=== PATIENT | female | born 1985 | race Caucasian/White ===

== ENCOUNTER 2017-01-26 10:10 | Observation (INO) ==
[2017-01-26] MEDS ORDERED: ASPIRIN 325 MG TABLET PO STA (10:43)
[2017-01-26] MEDS ORDERED: ENOXAPARIN 100 MG/ML SYRINGE SUBCUT STA (10:43)
[2017-01-26] MEDS ORDERED: ENOXAPARIN 80 MG/0.8 ML SYRINGE SUBCUT ONE (10:58)
[2017-01-26] MEDS ORDERED: ASPIRIN 325 MG TABLET ONE (10:58)
[2017-01-26 11:11] LABS: PT Patient Result 10.1 SECS; Partial Thromboplastin Time 30.8 SECS (0-40)
[2017-01-26 11:18] LABS: Apearance,Urine Slightly Hazy (Clear); Bacteria,Urine Occasional /HPF (Few); Bilirubin,Urine Negative (Negative); Blood, Urine Negative (Negative); Glucose,Urine (UA) Negative (Negative); Ketones,Urine Negative (Negative); Mucus,Urine Occasional /LPF (Occasional); Nitrite,Urine Negative (Negative); Protein,Urine Negative; RBC,Urine 2 /HPF (0-4); Squamous Epithelial Cell,Urine Occasional /HPF (0-10); Urine Color Yellow (Yellow); Urine Specific Gravity 1.014 (1.001-1.035); Urine Urobilinogen < 2.0 EU/DL (0.2-1.0); WBC,Urine 1 /HPF (0-6)
--- NOTE | 2017-01-26 11:18 | Emergency Department Note ---
Raffaele Anaya Brittany, am scribing for, and in the presence of, Perry Chowdary MD 10: 46. Ricarda Anaya James D, MD, personally performed the services described in this documentation, ascribed by Greer Castorena in my presence, and it is both accurate and complete . Arrival - Arrival Chief Complaint: Chest Pain Stated Complaint: pain in left arm and chest ED Nursing Triage Note: pain in center of chest that radiates down her right arm that started last night. reports some sob that is worse when she lays down. denies being sick with cough or cold. Mode of Arrival: Ambulatory Limitations: No Limitations Source: Patient - History of Present Illness HPI Narrative: This is a 31 y/o white female, who presents to the ED with c/o CP which started last night. She localizes the pain to the right side of the chest and describes the pain as an aching/dull type of pain. She reports she was sleeping when the pain started. She states the pain goes to her neck and down the left arm and then into the upper part of her left shoulder/back area. She reports diaphoresis with the chest pain. Pt has no other complaints/pain in the ED at this time. PT has a PMHx of asthma. Pt has had a cholecystectomy and spinal surgery. Pt is a current every day smoker, she reports she smokes 1/4 PPD, but denies the use of alcohol and street drugs. Onset (ago): hour(s) (Started last night) Consistency: constant Severity: moderate Quality: aching, dull Date of Last Menstrual Period: today Allergies/Adverse Reactions: Allergies Allergy/AdvReac Type Severity Reaction Status Date / Time sulfamethoxazole Allergy RASH Verified 03/22/15 20:58 [From Bactrim] trimethoprim [From Bactrim] Allergy RASH Verified 03/22/15 20:58 tramadol AdvReac Migraine Verified 03/22/15 20:58 Home Medications: Home Medications Medication Instructions Recorded Confirmed Type clonazePAM [Clonazepam] 1 mg PO QOTHER DAY PRN 01/26/17 01/26/17 History Review of System - Review of System 12 point system: reviewed and no additional remarkable complaints except as stated - Review of System Constitutional: Present: diaphoresis Cardiovascular: Present: chest pain, orthopnea Medical,Surgical,& Family Hx - Medical History Cardio: No history of: Hypertension Endocrine: No history of: Diabetes Mellitus (IDDM), Diabetes Mellitus (NIDDM) Respiratory: History of: Asthma No history of: Pneumonia Renal: No history of: Renal Failure, Renal Problems Gastrointestinal: History of: GI Problems (remote hx of PUD) No history of: Gastrointestinal Bleed, Liver Problems Musculoskeletal: History of: Back/Neck Problems - Surgical History Abdominal Surgeries: Surgical HX of: Cholecystectomy Orthopedic Surgeries: Surgical HX of;: Spinal Surgery (L5-S1 fusion) - Social History Smoking Status: Current every day smoker Exam Vital Signs: Vital Signs Temperature 98.1 F 01/26/17 10:41 Pulse Rate 62 01/26/17 11:16 Respiratory Rate 17 01/26/17 11:16 Blood Pressure 110/74 01/26/17 11:16 O2 Sat by Pulse Oximetry 100 01/26/17 11:16 GENERAL: This is a well-nourished well-developed white female in no apparent distress. VITAL SIGNS: Reviewed HEENT: Head is atraumatic and normocephalic. Pupils are equal round react to light. Extraocular movements are intact. Oropharynx is benign with moist mucous membranes. NECK: Neck is soft and supple without tenderness. There are no masses. There is no lymphadenopathy. LUNGS: Lungs are clear to auscultation. Chest rises symmetrically. There is no chest wall tenderness. CV: Heart is regular rate and rhythm without murmurs rubs or gallops. ABDOMEN: Abdomen is soft, nontender to palpation. There are no abdominal abnormal masses palpated. There is no organomegaly. Bowel sounds are present and active. SKIN: Skin is warm and dry. No rash. EXTREMITIES: Patient has full range of motion without tenderness. There is no pedal edema. NEUROLOGIC: Awake alert and oriented 4. Cranial nerves II through XII are grossly intact. Motor is 5 over 5 in all extremities bilaterally. Course - Consultations Consultation #1: Discussed with hospitalist. Patient will be admitted to their service. Time: 12:39 Results - Labs CBC & BMP: 01/26/17 10:53 01/26/17 10:53 Lab Results: I have reviewed the patients labs Labs: Laboratory Tests 01/26/17 10:53 Troponin I < 0.015 Laboratory Tests 01/26/17 10:53 Urine Opiates Screen Positive H Ur Barbiturates Screen Negative Ur Phencyclidine Scrn Negative U Amphetamine/Methamph Negative U Benzodiazepines Scrn Positive H U Cocaine Metab Screen Negative U Cannabinoids Screen Positive H - EKG EKG results: interpreted by ERMD - Impressions EKG: Normal sinus rhythm with a rate of 66, normal ST-T waves, normal axis. - Diagnostic Findings Procedure: Chest x-ray: image reviewed by me (No infiltrates, no pleural effusions, no cardiomegaly) Disposition Clinical Impression: Chest pain, Nicotine addiction, Polysubstance abuse Case discussed with: patient Disposition: Still a Patient Condition: Stable Time of Disposition: 12:31
[2017-01-26 11:24] LABS: Barbiturates Screen,Urine Negative (Negative); Benzodiazepines Screen,Urine Positive (Negative); Cannabinoid Screen,Urine Positive (Negative); Opiate Screen,Urine Positive (Negative); Phencyclidine Screen,Urine Negative (Negative)
[2017-01-26 11:35] LABS: Albumin 3.9 G/DL (3.4-5.0); Bilirubin,Total 1.6 MG/DL (0.2-1.0); Calcium 8.8 MG/DL (8.5-10.1); Osmolality,Calculated 282.8 MOS/KG (273-304); Potassium 3.8 MMOL/L (3.5-5.1); Total Protein 6.8 G/DL (6.4-8.3)
[2017-01-26 11:37] LABS: Basophils % 0.5 % (0.0-0.8); Eosinophils # 0.3 10*3/uL (0.0-0.87); Eosinophils % 4.6 % (0.00-10.9); Hematocrit 43.3 VOL% (35.7-47.0); Hemoglobin 14.7 GM/DL (12.0-16.0); Immature Granulocytes % 0.2 %; Immature Granulocytes Absolute 0.01 #; Lymphocytes # 2.1 10*3/uL (1.4-4.0); Lymphocytes % 35.4 % (21.3-54.2); Mean Corpuscular HGB Conc 33.9 GM/DL (32-36); Mean Corpuscular Hemoglobin 31 PG (27-34); Mean Corpuscular Volume 91.2 FL (87-102); Mean Platelet Volume 11.6 FL (9.6-12.0); Monocytes # 0.3 10*3/uL (0.11-0.8); Monocytes % 4.8 % (1.7-12.7); Neutrophils # 3.2 10*3/uL (1.4-7.4); Neutrophils % 54.5 % (38.7-73.9); Platelet Count 237 T/CUMM (130-400); Red Blood Count 4.75 MC/CUMM (3.8-5.5); Red Cell Distribution Width 11.8 % (9.3-17.3); White Blood Count 5.8 T/CUMM (4-12)
--- NOTE | 2017-01-26 11:39 | XRay Report ---
XR chest 2V Indication: Chest pain. Chest 2 views: Comparisons 08/17/2014. The heart size and mediastinal contour are normal. The lungs and pleural spaces are clear. Bones are unremarkable. Impression: Negative chest. PROCEDURE INTERPRETED AT [facility] [place] DEPARTMENT OF RADIOLOGY Final Report Signed by: Shiva Gaona M.D.
--- NOTE | 2017-01-26 13:19 | EKG Report ---
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
[2017-01-26] MEDS ORDERED: DOCUSATE SODIUM 100 MG CAPSULE PO PRN (14:35)
[2017-01-26] MEDS ORDERED: ACETAMINOPHEN 325 MG TABLET PO PRN (14:35)
[2017-01-26] MEDS ORDERED: BISACODYL 5 MG TABLET PO PRN (14:35)
[2017-01-26] MEDS ORDERED: ONDANSETRON 4 MG/2 ML VIAL IV PRN (14:35)
--- NOTE | 2017-01-26 14:40 | Hospitalist History & Physical ---
<Mel Melendrez - Last Filed: 01/26/17 15:30> Assessment and Plan (1) Chest pain Status: Acute Assessment and plan: Telemetry monitoring. Serial troponins and EKGs ordered. Pt. positive for opiates. CT of chest pending. CXR was negative. Ddimer ordered (2) Nicotine addiction Status: Acute Assessment and plan: Smoking cessation education. Nicotine patch ordered. History of Present Illness Chief complaint: chest pain History of present illness: Ms. Law is a 31-year-old white female patient with a hx of asthma and anxiety who presents to the ER today with complaints of chest pain. Patient states that the chest pain started last night before she went to bed. Patient describes the pain as dull and achy and 7 out of 10 on pain scale. She states that the pain started on the left side of her chest and radiated down her left arm. The patient goes on to state that the pain was so bad that she was awaken out of her sleep in "cold sweats". Pt. denied any fever. Patient also states being slightly short of breath when lying flat. She states that the shortness of breath started right around the time of the chest pain. Pt states that she was nausea but denies vomiting. Pt. does report that she does frequently vomit after having gall bladder removed 3 yrs ago but has not in the last 24-48 hours. Pt is a smoker and labs show she is positive for opiates. Pt. will be admitted to the hospitalist program for further evaluation. Home Medications Medication Instructions Recorded Confirmed Type Hydrocodone/Acetaminophen 1 tablet PO Q6HR PRN 01/26/17 01/26/17 History [Hydrocodon-Acetaminoph 7.5-325] clonazePAM [Clonazepam] 1 - 2 mg PO TID PRN 01/26/17 01/26/17 History Acetaminophen Tab [Tylenol Tab] 650 mg PO Q4H PRN #0 tablet 01/27/17 Rx Aspirin EC Tab 81 mg PO DAILY tablet 01/27/17 Rx Nicotine 7 mg/24 Hr Patch 1 patch TRANSDERM DAILY PRN #7 01/27/17 Rx [Nicoderm CQ 7 mg/24 hr Patch] patch Pantoprazole Tab [Protonix Tab] 40 mg PO DAILY #30 tablet 01/27/17 Rx Allergies Allergy/AdvReac Type Severity Reaction Status Date / Time sulfamethoxazole Allergy RASH Verified 03/22/15 20:58 [From Bactrim] trimethoprim [From Bactrim] Allergy RASH Verified 03/22/15 20:58 tramadol AdvReac Migraine Verified 03/22/15 20:58 Medical,Surgical,& Family Hx - Medical History Cardio: No history of: Hypertension Endocrine: No history of: Diabetes Mellitus (IDDM), Diabetes Mellitus (NIDDM) Respiratory: History of: Asthma No history of: Pneumonia Renal: No history of: Renal Failure, Renal Problems Gastrointestinal: History of: GI Problems (remote hx of PUD) No history of: Gastrointestinal Bleed, Liver Problems Musculoskeletal: History of: Back/Neck Problems - Surgical History Abdominal Surgeries: Surgical HX of: Cholecystectomy Orthopedic Surgeries: Surgical HX of;: Spinal Surgery (L5-S1 fusion) - Social History Smoking Status: Current every day smoker - Constitutional Constitutional: Present: night sweats (01/25 only). Absent: chills, fever(s) - EENT Eyes: Absent: loss of vision Nose, mouth and throat: Absent: dysphagia - Cardiovascular Cardiovascular: Present: chest pain at rest, dyspnea (while lying flat), radiating jaw, neck or arm pain. Absent: edema, lightheadedness - Respiratory Respiratory: Present: dyspnea. Absent: cough, snoring - Gastrointestinal Gastrointestinal: Present: nausea, vomiting (pt. reports vomitting 3-4 times a week. pt denies any within last 24-48 hours). Absent: abdominal pain, dysphagia - Genitourinary Genitourinary: Absent: difficulty urinating, urinary frequency - Psychiatric Psychiatric: Present: anxiety. Absent: confusion Exam - Constitutional Vitals: Period Temp Pulse Resp BP Sys/Jessica Pulse Ox Last 24 Hr 99.0 F 57 20 130/63 100 General appearance: normal weight, no acute distress - Head Head exam: Present: normal inspection, normocephalic - Eye Eye exam: Present: EOMI Pupils: Present: ANASTACIO - Neck Neck exam: Present: normal inspection - Respiratory Respiratory exam: Present: clear to auscultation bilaterally. Absent: wheezes - Cardiovascular Cardiovascular exam: Present: regular rate and rhythm - GI/Abdominal GI/Abdominal exam: Present: normal bowel sounds, soft. Absent: tenderness - Extremities Exam Extremities exam: Present: normal inspection, normal capillary refill, full ROM - Back Exam Back exam: Present: normal inspection - Skin Skin exam: Present: normal color, warm, dry Results - Labs CBC & BMP: 01/26/17 10:53 01/26/17 10:53 Lab Results: I have reviewed the past 24 hour labs - EKG EKG shows: sinus rhythm - Diagnostic Findings Procedure: Chest x-ray: report reviewed by me (negative) <Bessie Dixon - Last Filed: 01/28/17 07:26> Assessment and Plan (1) Chest pain Status: Acute (2) Nicotine addiction Status: Acute History of Present Illness History of present illness: Ms. Story is a 31 year old female with a history of asthma was admitted [facility]. -Telelmetry -serial cardiac enzymes -D-dimers -Echo -outpt stress test if all enzymes are negative aspirin Exam - Constitutional Vitals: Period Temp Pulse Resp BP Sys/Jessica Pulse Ox Last 24 Hr 96.7 F-98.1 F 59-60 18-18 107-112/53-60 98-99 Results - Labs CBC & BMP: 01/27/17 03:14 01/27/17 03:14
[2017-01-26] MEDS: ENOXAPARIN 40 MG/0.4 ML SYRINGE SUBCUT SCH (14:44)
[2017-01-26] MEDS ORDERED: NICOTINE 7 MG/24 HR PATCH TRANSDERM PRN (15:22)
[2017-01-26] MEDS ORDERED: clonazePAM 0.5 MG TABLET PO PRN (15:24)
--- NOTE | 2017-01-26 17:38 | CT Report ---
History is chest pain 80 cc Omnipaque 350 utilized. Axial images obtained with 3-D multiplanar reconstruction images also stored and interpreted Minimal density in the anterior mediastinum as configuration of the thymus. There is a tiny hiatal hernia present. Images through the upper abdomen show clips in the gallbladder fossa No pleural effusions present No consolidation or pneumothorax seen. Minimal stranding present in the lung bases and along the minor fissure Impression: 1. Tiny hiatal hernia 2. Prior cholecystectomy The CT exam was performed using one or more of the following dose reduction techniques: Automated exposure control, adjustment of the mA and/or kV according to patient size, or use of iterative reconstruction technique. PROCEDURE INTERPRETED AT [facility] DEPARTMENT OF RADIOLOGY Final Report Signed by: Dr. Jailene Rodriguez
[2017-01-27 03:27] LABS: Basophils # 0.1 10*3/uL (0.0-0.2); Basophils % 0.9 % (0.0-0.8); Eosinophils # 0.3 10*3/uL (0.0-0.87); Eosinophils % 5.1 % (0.00-10.9); Hematocrit 38.8 VOL% (35.7-47.0); Hemoglobin 12.9 GM/DL (12.0-16.0); Immature Granulocytes % 0.2 %; Immature Granulocytes Absolute 0.01 #; Lymphocytes # 2.8 10*3/uL (1.4-4.0); Lymphocytes % 48.3 % (21.3-54.2); Mean Corpuscular HGB Conc 33.2 GM/DL (32-36); Mean Corpuscular Hemoglobin 31 PG (27-34); Mean Corpuscular Volume 91.9 FL (87-102); Mean Platelet Volume 11.3 FL (9.6-12.0); Monocytes # 0.4 10*3/uL (0.11-0.8); Monocytes % 6.8 % (1.7-12.7); Neutrophils # 2.3 10*3/uL (1.4-7.4); Neutrophils % 38.7 % (38.7-73.9); Platelet Count 223 T/CUMM (130-400); Red Blood Count 4.22 MC/CUMM (3.8-5.5); Red Cell Distribution Width 11.7 % (9.3-17.3); White Blood Count 5.9 T/CUMM (4-12)
[2017-01-27 04:00] LABS: Albumin 3.3 G/DL (3.4-5.0); Bilirubin,Total 0.8 MG/DL (0.2-1.0); Calcium 8.4 MG/DL (8.5-10.1); Osmolality,Calculated 282.8 MOS/KG (273-304); Potassium 3.8 MMOL/L (3.5-5.1)
[2017-01-27 04:31] LABS: Risk Ratio 4.37; VLDL CHOLESTEROL 23.2 MG/DL
--- NOTE | 2017-01-27 07:45 | EKG Report ---
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
[2017-01-27] MEDS ORDERED: ASPIRIN EC 81 MG TABLET PO SCH (09:00)
[2017-01-27] MEDS ORDERED: PANTOPRAZOLE 40 MG TABLET PO SCH (09:00)
--- NOTE | 2017-01-27 09:44 | Discharge Summary ---
<Ryan Melendrezabydominique - Last Filed: 01/27/17 09:54> Hospital Course - Hospital Course Hospital Course: Ms. Law is a 31-year-old white female patient who presents to the ED on with complaints of chest pain and shortness of breath. TThe patient has a history of smoking, anxiety, asthma, cholecystectomy, and back fusion. Patient was admitted for observation for chest pain. Cardiac enzymes and EKG were negative. Patient was positive for opiates. CXR negative and ddimer and CT of chest unremarkable (only mild hiatial hernia noted). Pt is stable today. Vital signs are stable. Pt to be discharged and scheduled for outpatient stress test. PPI will also be ordered for pt. Diagnosis - Discharge Diagnosis (1) Chest pain Status: Acute (2) Nicotine addiction Status: Acute Discharge Plan - Discharge Data Disposition: Disch To Home/Self Care - Discharge Medications New Acetaminophen Tab [Tylenol Tab] 650 mg PO Q4H PRN #0 tablet PRN Reason: Fever, Headache, Mild Pain Nicotine 7 mg/24 Hr Patch [Nicoderm CQ 7 mg/24 hr Patch] 1 patch TRANSDERM DAILY PRN #7 patch PRN Reason: Nicotine Withdrawal Pantoprazole Tab [Protonix Tab] 40 mg PO DAILY #30 tablet Aspirin EC Tab 81 mg PO DAILY tablet Continue Hydrocodone/Acetaminophen [Hydrocodon-Acetaminoph 7.5-325] 1 tablet PO Q6HR PRN PRN Reason: Pain clonazePAM [Clonazepam] 1 - 2 mg PO TID PRN PRN Reason: Anxiety - Follow Up or Referral - Forms/Instructions Exam - Constitutional Vitals: Period Temp Pulse Resp BP Sys/Jessica Pulse Ox Last 24 Hr 96.7 F-970 F 54-72 13-20 105-130/53-77 97-100 Discharge Results Procedures and tests throughout hospitalization: Pending Orders 01/26/17 14:35 Urinalysis Routine Labs on day of discharge: Labs from last 24 hours 01/27/17 01/27/17 01/27/17 03:14 03:14 03:14 WBC 5.9 RBC 4.22 Hgb 12.9 Hct 38.8 MCV 91.9 MCH 31 MCHC 33.2 RDW 11.7 Plt Count 223 MPV 11.3 Neut % (Auto) 38.7 Lymph % (Auto) 48.3 [place] % (Auto) 6.8 Eos % (Auto) 5.1 Baso % (Auto) 0.9 H Neut # (Auto) 2.3 Lymph # (Auto) 2.8 [place] # (Auto) 0.4 Eos # (Auto) 0.3 Baso # (Auto) 0.1 Immature Gran % 0.2 Nucleated RBC % 0.0 Immature Gran # 0.01 Nucleated RBCs # 0.00 D-Dimer, Quantitative Sodium 144 Potassium 3.8 Chloride 112 H Carbon Dioxide 23 Anion Gap 12.8 BUN 8 Creatinine 0.60 GFR Calculation 128 BUN/Creatinine Ratio 13.00 Glucose 82 Calculated Osmolality 282.8 Calcium 8.4 L Total Bilirubin 0.80 AST 15 ALT 20 Alkaline Phosphatase 58 Troponin I Total Protein 6.0 L Albumin 3.3 L Globulin 2.7 Albumin/Globulin Ratio 1.2 Triglycerides 116 Cholesterol 153 LDL Cholesterol 108.0 VLDL Cholesterol 23.2 HDL Cholesterol 35 L Heart Disease Risk Ratio 4.37 Free T4 TSH 3rd Generation 01/26/17 01/26/17 01/26/17 17:45 15:34 14:44 WBC RBC Hgb Hct MCV MCH MCHC RDW Plt Count MPV Neut % (Auto) Lymph % (Auto) [place] % (Auto) Eos % (Auto) Baso % (Auto) Neut # (Auto) Lymph # (Auto) [place] # (Auto) Eos # (Auto) Baso # (Auto) Immature Gran % Nucleated RBC % Immature Gran # Nucleated RBCs # D-Dimer, Quantitative <= 0.5 Sodium Potassium Chloride Carbon Dioxide Anion Gap BUN Creatinine GFR Calculation BUN/Creatinine Ratio Glucose Calculated Osmolality Calcium Total Bilirubin AST ALT Alkaline Phosphatase Troponin I < 0.015 Total Protein Albumin Globulin Albumin/Globulin Ratio Triglycerides Cholesterol LDL Cholesterol VLDL Cholesterol HDL Cholesterol Heart Disease Risk Ratio Free T4 TSH 3rd Generation 1.090 01/26/17 01/26/17 14:44 14:44 WBC RBC Hgb Hct MCV MCH MCHC RDW Plt Count MPV Neut % (Auto) Lymph % (Auto) [place] % (Auto) Eos % (Auto) Baso % (Auto) Neut # (Auto) Lymph # (Auto) [place] # (Auto) Eos # (Auto) Baso # (Auto) Immature Gran % Nucleated RBC % Immature Gran # Nucleated RBCs # D-Dimer, Quantitative Sodium Potassium Chloride Carbon Dioxide Anion Gap BUN Creatinine GFR Calculation BUN/Creatinine Ratio Glucose Calculated Osmolality Calcium Total Bilirubin AST ALT Alkaline Phosphatase Troponin I < 0.015 Total Protein Albumin Globulin Albumin/Globulin Ratio Triglycerides Cholesterol LDL Cholesterol VLDL Cholesterol HDL Cholesterol Heart Disease Risk Ratio Free T4 1.16 TSH 3rd Generation DS: Provider Date of admission: 01/26/17 13:36 Primary care physician: . No PCP Attending physician on admission: Bessie Dixon MD Consults: 01/26/17 14:39 Consult to Pharmacy [CONS] Routine Reason for Pharmacy Consult: Adjust Meds Renal Funct Discharging clinician: Mel Melendrez NP <Bessie Dixon - Last Filed: 01/27/17 13:05> Hospital Course - Time spent with patient Time with patient DS: Greater than 30 minutes Diagnosis - Discharge Diagnosis (1) Chest pain Status: Acute (2) Nicotine addiction Status: Acute Discharge Plan - Discharge Data Condition at Discharge: Stable Discharge Diet: advance to your usual diet Activity: resume usual activities as tolerated - Forms/Instructions Additional Discharge Instructions: Outpatient stress test. Follow with PCP in 1week Exam - Constitutional General appearance: no acute distress - Head Head exam: Present: normal inspection - Eye Eye exam: Present: EOMI - Respiratory Respiratory exam: Present: clear to auscultation bilaterally - Cardiovascular Cardiovascular exam: Present: regular rate and rhythm - GI/Abdominal GI/Abdominal exam: Present: normal bowel sounds - Extremities Exam Extremities exam: Present: normal inspection
[2017-01-27 11:45] VITALS: BP 107/53
[2017-01-27] MEDS: ENOXAPARIN 40 MG/0.4 ML SYRINGE SUBCUT SCH (14:23)
== END 2017-01-27 14:43 | disposition home or self-care (01) ==
LOC: N.ED 10:10 → N.EDINP 10:10 → N.TELEN 14:30
PROVIDERS: ADMIT Internal Medicine; ATTEND Internal Medicine